=== PATIENT | male | born 1995 | race Caucasian/White ===

== ENCOUNTER 2023-09-17 14:02 | Emergency (ER) | payer SELFPAY ==
[~2023-09-17] VITALS: Ht 177.8 cm; Wt 70.0 kg
[2023-09-17 14:19] VITALS: O2SAT 99
[2023-09-17] MEDS ORDERED: NAPR-681 MT (15:58)
[2023-09-17 16:39] VITALS: BP 114/89; PULSE 89; RESP 18; TEMP 98.5
== END 2023-09-17 16:41 | disposition home or self-care (01) ==
LOC: ER 15:09
DX: S01.111A Laceration without foreign body of right eyelid and periocular area, initial encounter (principal); Z88.0 Allergy status to penicillin; W19.XXXA Unspecified fall, initial encounter; Y93.89 Activity, other specified; Y92.89 Other specified places as the place of occurrence of the external cause; Y99.8 Other external cause status
CPT/HCPCS: 12011; 99282; Z7610